=== PATIENT | female | born 1990 | race Caucasian/White ===

== ENCOUNTER 2016-11-29 09:33 | Emergency (ER) | payer OTHER ==
[2016-11-29 09:46] VITALS: BMI 21.0
[2016-11-29 10:44] LABS: RBC URINE 4 /hpf (0-3); URINE BILIRUBIN NEGATIVE (NEGATIVE); URINE BLOOD NEGATIVE (NEGATIVE); URINE COLOR Yellow (YELLOW); URINE GLUCOSE (UA) 2+ mg/dL (Normal); URINE HYALINE CAST 0-2 /lpf (0-2); URINE KETONE 2+ mg/dL (NEGATIVE); URINE LEUKOCYTE ESTERASE NEG Leu/uL (Negative); URINE PROTEIN 1+ mg/dL (NEGATIVE); URINE UROBILINOGEN NORMAL mg/dL (0.2-1.0); WBC URINE 1 /hpf (0-5)
[2016-11-29] MEDS ORDERED: Sodium Chloride 0.9% 1,000 ML IV ONE (11:08)
--- NOTE | 2016-11-29 11:10 | C.PDOC ---
History Of Present Illness 26 yr old female presents to the ER with complaints of abdominal pain, associated with body aches for the past 2 days. patient states she had pizza 3 dys ago and has had the abdominal pain ever since. Also reports of 2 loose bowel movements. Patient denies fever, nausea, vomiting, dysuria, weakness or numbness. Time Seen by Provider: 11/29/16 10:36 Chief Complaint (Nursing): Abdominal Pain History Per: Patient History/Exam Limitations: no limitations Onset/Duration Of Symptoms: Days (2 days) Current Symptoms Are (Timing): Still Present Location Of Pain/Discomfort: Epigastric Past Medical History Reviewed: Historical Data, Nursing Documentation, Vital Signs Vital Signs: Last Vital Signs Temp 98.4 F 11/29/16 12:30 Pulse 80 11/29/16 12:30 Resp 18 11/29/16 12:30 BP 95/60 L 11/29/16 12:30 Pulse Ox 100 11/29/16 12:58 Family History: States: No Known Family Hx - Social History Hx Alcohol Use: No Hx Substance Use: No - Immunization History Hx Tetanus Toxoid Vaccination: No Hx Influenza Vaccination: Yes (2016) Hx Pneumococcal Vaccination: No Review Of Systems Except As Marked, All Systems Reviewed And Found Negative. Constitutional: Negative for: Fever Gastrointestinal: Positive for: Abdominal Pain, Diarrhea (2 loose BM ). Negative for: Nausea, Vomiting Genitourinary: Negative for: Dysuria Neurological: Negative for: Weakness, Numbness Physical Exam - Physical Exam Appears: Non-toxic, No Acute Distress Skin: Warm, Dry, No Rash Head: Atraumatic, Normacephalic Oral Mucosa: Moist Chest: Symmetrical, No Tenderness Cardiovascular: Rhythm Regular, No Murmur Respiratory: Normal Breath Sounds, No Rales, No Rhonchi, No Wheezing Gastrointestinal/Abdominal: Normal Exam, Soft, No Tenderness, No Guarding, No Rebound Extremity: Normal ROM, No Swelling Neurological/Psych: Oriented x3, Normal Speech, Normal Motor ED Course And Treatment - Laboratory Results Result Diagrams: 11/29/16 11:52 11/29/16 11:52 O2 Sat by Pulse Oximetry: 100 - Other Rad X-Ray - Obstructive Series X-Ray: Viewed By Me, Read By Radiologist Interpretation: PROCEDURE: Radiographs of the chest and abdomen (obstructive series). HISTORY: abd pain. COMPARISON: No prior. TECHNIQUE: AP radiograph of the chest, with upright and supine radiographs of the abdomen. FINDINGS: CHEST: Lungs: Clear. Cardiovascular: Normal size heart. No pulmonary vascular congestion. Pleura: No pleural fluid. No pneumothorax. Other findings: None. ABDOMEN AND PELVIS: Bowel: Moderate stool retention. No evidence of mechanical obstruction. Free air: None. Bones: Left acetabular benign sclerotic lesion benign bone island most likely. 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 Other findings: None. IMPRESSION: No pulmonary infiltrate. No bowel obstruction. Moderate stool retention. Benign and developmental variant osseous changes. Bilateral sacroiliac sclerotic arthrosis Medical Decision Making Medical Decision Making: PLAN: * X-Ray - Obstructive Series * CBC * CMP * HCG * Urinalysis * Pepcid IVP * Zofran IVP * Toradol IVP * Sodium Chloride IV Disposition - Disposition Referrals: at [facility] [Outside] Disposition: HOME/ ROUTINE Disposition Time: 13:43 Condition: FAIR Additional Instructions: Follow up with the medical doctor within 1-2 days. Return if worsened. 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 - Scribe Statement The provider has reviewed the documentation as recorded by the Scribe Genia Mc All medical record entries made by the Maritaibhesham were at my direction and personally dictated by me. I have reviewed the chart and agree that the record accurately reflects my personal performance of the history, physical exam, medical decision making, and the department course for this patient. I have also personally directed, reviewed, and agree with the discharge instructions and disposition.
[2016-11-29] MEDS ORDERED: Sodium Chloride 0.9% 1,000 ML ONE (11:25)
[2016-11-29 11:58] LABS: BASO % 0.3 % (0.0-2.0); EOS % 0.1 % (0.0-4.0); HEMATOCRIT 34.5 % (34.0-47.0); LYMPH # 1.4 K/uL (1.0-4.3); LYMPH % 17.8 % (20.0-40.0); MEAN CELL VOLUME 82.7 fL (81.0-99.0); MEAN CORPUSCULAR HEMOGLOBIN 27.5 pg (27.0-31.0); MEAN CORPUSCULAR HGB CONC 33.3 g/dL (33.0-37.0); MONO # 0.4 K/uL (0.0-0.8); MONO % 4.9 % (0.0-10.0); RED CELL DISTRIBUTION WIDTH 13.6 % (11.5-14.5); WHITE BLOOD COUNT 7.9 K/uL (4.8-10.8)
[2016-11-29 12:15] LABS: CHLORIDE 101 mmol/L (98-107)
[2016-11-29 12:16] LABS: POTASSIUM 3.2 mmol/L (3.6-5.2); SODIUM 138 mmol/L (132-148)
[2016-11-29 12:19] LABS: ALKALINE PHOSPHATASE 71 U/L (38-126); ALT/SGPT 23 U/L (9-52); AST/SGOT 22 U/L (14-36); BILIRUBIN,TOTAL 0.4 mg/dL (0.2-1.3); BLOOD UREA NITROGEN 11 mg/dL (7-17); CARBON DIOXIDE 27 mmol/L (22-30); GFR AFRICAN-AMERICAN > 60; GLUCOSE,RANDOM 254 mg/dL (65-105)
[2016-11-29 12:20] LABS: CALCIUM 8.9 mg/dl (8.6-10.4)
[2016-11-29 12:31] VITALS: RESP 18
--- NOTE | 2016-11-29 12:55 | RAD ---
PROCEDURE: Radiographs of the chest and abdomen (obstructive series) HISTORY: abd pain COMPARISON: No prior. TECHNIQUE: AP radiograph of the chest, with upright and supine radiographs of the abdomen. FINDINGS: CHEST: Lungs: Clear. Cardiovascular: Normal size heart. No pulmonary vascular congestion. Pleura: No pleural fluid. No pneumothorax. Other findings: None. ABDOMEN AND PELVIS: Bowel: Moderate stool retention. No evidence of mechanical obstruction. Free air: None. Bones: Left acetabular benign sclerotic lesion benign bone island most likely. 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 Other findings: None. IMPRESSION: No pulmonary infiltrate. No bowel obstruction. Moderate stool retention. Benign and developmental variant osseous changes. Bilateral sacroiliac sclerotic arthrosis
[2016-11-29 13:53] VITALS: BP 98/60; PULSE 70; TEMP 98.7; O2SAT 98
== END 2016-11-29 14:03 | disposition home or self-care (01) ==
LOC: C.ER 09:33
DX: B34.9 Viral infection, unspecified (principal); R10.9 Unspecified abdominal pain
CPT/HCPCS: 74022; 80053; 81001; 83690; 84703; 85025; 96361; 96374; 96375; 99284; J1885; J2405; J7040